=== PATIENT | male | born 1970 | race Hispanic/Latino ===

== ENCOUNTER 2018-08-30 04:18 | Inpatient (IN) | payer SELFPAY ==
[2018-08-30 05:26] LABS: Hemoglobin 9.1 g/dL (14.0-18.0); Mean Corpuscular HGB CONC 29.7 g/dL (32.0-36.0); Mean Corpuscular Hemoglobin 23.1 pg (27.0-31.0); Mean Corpuscular Volume 77.7 fL (78.0-98.0); Mean Platelet Volume 9.7 fL (7.4-10.4); Platelet Count 163 thou/uL (130-400); RBC Distribution Width 21.2 % (11.5-14.5); Red Blood Cell (RBC) Count 3.94 mill/uL (4.70-6.10); White Blood Cell (WBC) Count 11.3 thou/uL (4.8-10.8)
[2018-08-30 05:56] LABS: #Basophils 0.1 thou/uL (0.0-0.2); #Lymphocytes 1.3 thou/uL (1.20-3.40); #Monocytes 0.3 thou/uL (0.11-0.59); #Neutrophils 9.6 thou/uL (1.40-6.50); %Basophils 0.6 % (0.0-1.0); %Eosinophils 0.1 % (0.0-10.0); %Lymphocytes 11.5 % (21.0-51.0); %Neutrophils 84.9 % (42.0-75.0); Anisocytosis MODERATE=16-30 cells (100X) (0-5/hpf); Elliptocytes SLIGHT = 2-5 cells (100X) (0-1/hpf); Hypochromia SLIGHT = 6-15 cells (100X) (0-5/hpf); MDiff Complete? YES; Microcytosis SLIGHT = 6-15 cells (100X) (0-5/hpf); Platelet Morphology Comment Appears Adequate; Poikilocytosis SLIGHT = 6-15 cells (100X) (0-5/hpf)
[2018-08-30 06:53] VITALS: BMI 31.3
[2018-08-30 08:26] LABS: Lactic Acid 2.1 mmol/L (0.5-2.2)
[2018-08-30 08:33] LABS: ALT (SGPT) 15 U/L (8-55); AST (SGOT) 14 U/L (5-34); Albumin 3.1 g/dL (3.5-5.0); Alkaline Phosphatase 55 U/L (40-150); Anion Gap 11 mmol/L (10-20); BUN (Urea Nitrogen) 13 mg/dL (8.9-20.6); Bilirubin, Total 0.3 mg/dL (0.2-1.2); Calc. Creatinine Clearance 140 mL/min (70-130); Carbon Dioxide 20 mmol/L (22-29); Chloride 110 mmol/L (98-107); Estimated GFR-MDRD Greater than 90; Globulin 2.2 g/dL (2.4-3.5); Glucose 95 mg/dL (70-105); Iron 19 ug/dL (65-175); Iron Binding Capacity, Total 260 mcg/dL (261-462); Potassium 4.2 mmol/L (3.5-5.1); Protein, Total 5.3 g/dL (6.0-8.3); Sodium 137 mmol/L (136-145)
[2018-08-30 09:27] LABS: #Basophils 0.1 thou/uL (0.0-0.2); #Eosinphils 0.1 thou/uL (0.0-0.7); #Lymphocytes 1.5 thou/uL (1.20-3.40); #Monocytes 0.6 thou/uL (0.11-0.59); #Neutrophils 7.2 thou/uL (1.40-6.50); %Basophils 0.5 % (0.0-1.0); %Eosinophils 0.5 % (0.0-10.0); %Lymphocytes 15.8 % (21.0-51.0); %Monocytes 5.8 % (0.0-10.0); %Neutrophils 77.3 % (42.0-75.0); Large Platelets SLIGHT; MDiff Complete? YES; Mean Corpuscular HGB CONC 30.4 g/dL (32.0-36.0); Mean Corpuscular Hemoglobin 23.9 pg (27.0-31.0); Mean Corpuscular Volume 78.5 fL (78.0-98.0); Mean Platelet Volume 12.2 fL (7.4-10.4); Ovalocytes SLIGHT = 2-5 cells (100X) (0-1/hpf); Platelet Count 159 thou/uL (130-400); Platelet Morphology Comment Appears Adequate; Poikilocytosis SLIGHT = 6-15 cells (100X) (0-5/hpf); RBC Distribution Width 21.4 % (11.5-14.5); Red Blood Cell (RBC) Count 3.79 mill/uL (4.70-6.10); White Blood Cell (WBC) Count 9.3 thou/uL (4.8-10.8)
[2018-08-30] MEDS: Famotidine/PF 20 mg/2ml Vial SLOW IVP SCH ×2 (09:51→20:52)
[2018-08-30] MEDS: Sodium Chloride 0.9% 1,000 ML IV SCH ×2 (09:51→15:45)
[2018-08-30 18:13] LABS: Hemoglobin 8.2 g/dL (14.0-18.0)
--- NOTE | 2018-08-30 20:29 | HP ---
CHIEF COMPLAINT: Bright blood per rectum. HISTORY OF PRESENT ILLNESS: The patient is a 47-year-old male with history of hypertension and anemia, who presents to the hospital with hematochezia. The patient stated that about 2 weeks ago, he had his banding of his internal hemorrhoid. The patient had this procedure done at [facility]. The patient states that he has had multiple procedures in the past about 3 or 4 in regard to his internal hemorrhoid bleeding. The patient stated that yesterday he was driving back from dialysis when he had to go to the bathroom, so he stopped at the gas station. When he went to the bathroom, the patient had initially a small amount of dark stools. However, after that, started having significant amount of bright blood per rectum. The patient stated that after that he felt very dizzy, did not feel well. The patient stated that he had 2 bouts of bloody stools also in the [place] [facility]. The patient states that normally that he is able to push his hemorrhoid back in, which was also bleeding; however, at this time, he was unable to do so. The patient also states that in the past, his bleeding has not been as severe as it was at this time. The family drove the patient to the [place] ER, where he got 1 unit of PRBC. PAST MEDICAL HISTORY: He has a history of; 1. Hypertension. 2. Kidney stones. 3. Anemia. PAST SURGICAL HISTORY: He has had a cholecystectomy and had about 2 to 3 internal hemorrhoid banding at [facility]. FAMILY HISTORY: No history of heart disease or cancer. SOCIAL HISTORY: Denies any smoking. Occasional alcohol use. No drug use. He is a full code. Lives with the family. REVIEW OF SYSTEMS: All negative except for the ones mentioned above in HPI. MEDICATIONS: He takes lisinopril 20 mg daily and iron injections one every 7 days. PHYSICAL EXAMINATION: VITAL SIGNS: Temperature of 98.2, pulse 71, respirations 20, O2 saturation 97% on room air, blood pressure 119/69. GENERAL: He is awake, alert, and oriented x3. Does not appear in any distress. CV: S1, S2 present. No murmurs, rubs, or gallops. HEENT: Normocephalic, atraumatic. No lymphadenopathy noted. Pupils are equal and reactive to light. ABDOMEN: Soft and nontender. Bowel sounds present x2. LUNGS: Clear to auscultation. No rhonchi or wheezes noted. NEUROVASCULAR: No focal deficits noted. SKIN: No cuts, lesions, or bruises noted. EXTREMITIES: Pedal pulses are present x2. LABORATORY RESULTS: WBCs of 9.3; hemoglobin of 9.0, he was 7.5 in [place], went up to 9.0; his MCV is 78.5; platelets of 159. Chemistry; sodium of 137, potassium of 4.2, BUN of 13, creatinine of 0.78, iron is 19, TIBC is 260, his ferritin is 34. ASSESSMENT AND PLAN: The patient is a very pleasant 47-year-old male, who presents to the hospital after hematochezia. 1. Hematochezia, most likely secondary to his hemorrhoid bleed. The patient yesterday became very symptomatic, which concerned him, so he came in to the ER for further evaluation. Currently, he feels well. His vitals are stable. His H and H are also stable. We will continue to monitor his H and H. GI has been consulted. I did speak with the patient and family, who wanted to follow up at [facility] since all his procedures have been done at [facility]. I also went ahead and kerbsided surgery and made them aware that if the patient starts having bright blood per rectum, may need a surgical intervention; however, at this time, I do not think there is a need for that. The patient also had a CAT scan, CT of abdomen and pelvis with IV contrast only, he did not have oral contrast, which indicated a soft tissue prominence at the distal aspect of the gastric lumen. The patient has at times been complaining of fullness according to the patient's ; however, he has no weight loss. I did recommend the patient to follow up as an outpatient with GI. 2. Hypertension. We will continue to hold his lisinopril. 3. Microcytic anemia. We will give one dose of IV iron. 4. DVT prophylaxis. We will put the patient on some SCDs. Job ID: [id number]
--- NOTE | 2018-08-30 23:49 | CON ---
DATE OF CONSULTATION: 08/30/2018 HISTORY OF PRESENT ILLNESS: Mr. Leal is a 47-year-old gentleman who was admitted last night for history of bleeding. He presented to the emergency room for this. He reports his history comes from his significant other who is in the room with him. Apparently he lives in [place], he was returning from the [place] area when he had rectal bleeding and stopped to come to the emergency room. He had hemorrhoidal banding via colonoscopy back on the of last month in [place] either [facility] or in the [facility] system. Apparently, he has had this once before a couple of years ago. She reports he has had history of chronic iron deficiency anemia attributed to hemorrhoidal bleeding and he has had evaluation in that system before. Apparently, he had upper endoscopy few years ago that they report was normal. He does intermittently have reflux and indigestion. He denies any rectal pain now. He had a small bowel movement this morning with a scant amount of blood. Last night when he presented apparently, he felt very weak and little bit diaphoretic. PAST MEDICAL HISTORY: Includes history of chronic iron deficiency anemia, internal hemorrhoids have been banded twice. He has had some issues with blood pressure in the past and kidney stones and renal cyst. PAST SURGICAL HISTORY: Hemorrhoidal banding, either appendectomy or cholecystectomy they are not sure which. ALLERGIES: SULFA. MEDICATIONS AT HOME: Lisinopril. REVIEW OF SYSTEMS: Negative for dysphagia, odynophagia, weight loss, melena, nausea, vomiting, chest pain, shortness of breath, dyspnea on exertion, anorectal pain, abdominal pain. FAMILY HISTORY: Negative for gastric cancer or colonic malignancy. SOCIAL HISTORY: Negative for alcohol, drugs, or tobacco. He is here with his . They live in [place]. MEDICATIONS HERE: Pepcid. PHYSICAL EXAMINATION: VITAL SIGNS: Temperature is 99.1 and 98.2, pulse 72, blood pressure 116/58. GENERAL: He is resting comfortably in bed. He is in no distress. HEENT: Oral and membranes are pink and moist. NECK: Supple without adenopathy. LUNGS: Clear. HEART: Regular rate and rhythm. ABDOMEN: Soft and nontender. There is no rebound. There is no guarding. RECTAL: Reveals internal hemorrhoids with no bleeding. LABORATORY DATA: The patient's hemoglobin was 9.5 on admission at 2200 yesterday and is 9.0 at 7 this morning. His white count was 17,000, then it is 9 today, platelet count 159. INR 1. Comprehensive metabolic profile normal with iron of 19, TIBC of 260, and saturation 7%, and ferritin 34. Liver function tests normal. Basic metabolic profile normal. A CAT scan of the abdomen and pelvis was done at 2300 last night for hematochezia. This is a limited evaluation as there is no oral contrast, only IV contrast that the radiologist felt there was possibly some soft tissue problems in distal antrum for which underlying mass was a diagnosis of exclusion. There was diverticulosis noted as well. ASSESSMENT: 1. Rectal bleeding, likely related to recent hemorrhoidal banding in [place]. There is no bleeding now. I suspect the bands probably fell off with a necrotic hemorrhoid. He has large internal hemorrhoids. However, I suspect that he will in the machine long goods helper probably need a formal hemorrhoidectomy. His has already made an appointment back at the clinic. They go to in [place] to get that taken care of. There is no active hemorrhage now, and I agree that if he has any further bleeding or hemorrhage overnight, he can go home and follow up with his doctors in [place]. 2. The radiologist states there may or may not be a filling defect in the stomach. The CAT scan is very limited and that there was no oral contrast for the stomach. The patient has some vague chronic upper GI symptoms. His notes that he has had upper endoscopies in the past 2 years in relation to evaluation for chronic anemia. If there is a desire to work this up further here, an upper GI with air-contrast upper GI would be the first step as this CT was very equivocal in it's read and it was not a CAT scan designed to evaluate the stomach at all as there was no oral contrast given. RECOMMENDATIONS: 1. Stool softeners with Colace and fiber daily. 2. Anusol suppositories. 3. If no further bleeding, the patient can follow up with his surgeon and gastrologist in [place]. 4. We will continue with H2 jamal and PPI for vague upper GI symptoms. 5. With regard to the abnormality seen on the CAT scan in the stomach, this was a rule out call. I have reviewed the films. There is no oral contrast given to really evaluate the stomach lining. I think if further evaluation is going to occur here, that could probably be done in the outpatient setting, but he is not going to stay here. He is going to go back to [place] and they can evaluate it there. I would give him a copy of his CAT scan to bring back to his doctors there. It seems that he has had recent endoscopy there and he probably does not need an another one. If for some reason he is going to stay here, I would recommend an upper GI air contrast that would be a more appropriate evaluation of the gastric mucosa from a radiologic standpoint. Job ID: [id number]
[2018-08-31] MEDS: Sodium Chloride 0.9% 1,000 ML IV SCH (04:02)
[2018-08-31 06:21] LABS: Anion Gap 11 mmol/L (10-20); BUN (Urea Nitrogen) 12 mg/dL (8.9-20.6); Calc. Creatinine Clearance 132 mL/min (70-130); Calcium 8.3 mg/dL (7.8-10.44); Carbon Dioxide 22 mmol/L (22-29); Chloride 111 mmol/L (98-107); Estimated GFR-MDRD Greater than 90; Glucose 81 mg/dL (70-105); Potassium 4.1 mmol/L (3.5-5.1); Sodium 140 mmol/L (136-145)
[2018-08-31 07:41] LABS: #Basophils 0.1 thou/uL (0.0-0.2); #Eosinphils 0.1 thou/uL (0.0-0.7); #Lymphocytes 1.7 thou/uL (1.20-3.40); #Monocytes 0.4 thou/uL (0.11-0.59); %Basophils 1.1 % (0.0-1.0); %Lymphocytes 32.3 % (21.0-51.0); %Monocytes 7.8 % (0.0-10.0); %Neutrophils 56.8 % (42.0-75.0); Hemoglobin 8.2 g/dL (14.0-18.0); MDiff Complete? YES; Mean Corpuscular HGB CONC 30.6 g/dL (32.0-36.0); Mean Corpuscular Hemoglobin 23.9 pg (27.0-31.0); Mean Corpuscular Volume 78.1 fL (78.0-98.0); Mean Platelet Volume 10.5 fL (7.4-10.4); Ovalocytes SLIGHT = 2-5 cells (100X) (0-1/hpf); Platelet Count 142 thou/uL (130-400); Platelet Morphology Comment Appears Decreased; Poikilocytosis SLIGHT = 6-15 cells (100X) (0-5/hpf); RBC Distribution Width 20.9 % (11.5-14.5); Red Blood Cell (RBC) Count 3.42 mill/uL (4.70-6.10); White Blood Cell (WBC) Count 5.3 thou/uL (4.8-10.8)
[2018-08-31] MEDS ORDERED: Iron Sucrose Complex 100 MG in Sodium Chloride 0.9% 100 ML IVPB SCH (07:45)
[2018-08-31] MEDS ORDERED: Iron, Sodium Ferric Gluconate 125 MG in Sodium Chloride 0.9% 100 ML IVPB SCH (08:45)
[2018-08-31] MEDS ORDERED: Docusate 100 MG CAP PO SCH (09:00)
[2018-08-31] MEDS: Famotidine/PF 20 mg/2ml Vial SLOW IVP SCH (10:17)
[2018-08-31 12:34] VITALS: BP 129/79; TEMP 98.4
--- NOTE | 2018-09-01 14:42 | DIS ---
DATE OF ADMISSION: 08/30/2018 DATE OF DISCHARGE: 08/31/2018 DISCHARGE DIAGNOSES: As of the following, 1. Hematochezia. 2. Hypertension. 3. Macrocytic anemia. 4. History of hemorrhoids, multiple hemorrhoid surgeries. HOSPITAL COURSE: The patient is a 47-year-old male who presented to the hospital initially with hematochezia and became very symptomatic with it. He was found to have an H and H of 7.5 I believe at the outside ER. He receives 1 unit of blood. His H and H came up to I believe it was 9. The patient continued to maintain his H and H at 8.2 consecutively x2 and he was discharged home. The patient while in the hospital was seen by GI, recommended to follow up as an outpatient given his some abnormal disease in his CT scan. The patient's stated that they are from [place], they have all their health care with [facility] and they will follow up with his needle grader at [facility]. The patient's also made an appointment with the surgeon since he has had multiple hemorrhoid surgeries most likely he had bright blood per rectum from his hemorrhoids. The patient did have a CT which indicated limited evaluation of the bowel without enteric contrast. There is soft tissue prominence of the distal aspect of the gastric lumen for which underlying mass is the diagnosis of exclusion. Recommended GI consultation and endoscopy. At this time, the patient and the family was made well aware about these findings and asked them to follow up with the GI doctor. HOME MEDICATIONS: 1. Iron one bag every 7 days of what he takes at home. 2. Colace 100 mg b.i.d. PHYSICAL EXAMINATION: VITAL SIGNS: Temperature 98.4, heart rate 78, respirations 16, oxygen saturation 98% on room air, blood pressure 129/79. GENERAL: He is awake, alert, and oriented x3. Does not appear in distress. CV: S1 and S2 present. No murmurs, rubs, or gallops. ABDOMEN: Soft and nontender. Bowel sounds are present x2. EXTREMITIES: No edema. Pedal pulses are present x2. Again, he will be discharged home. He will follow up with his surgeon and his needle grader as outpatient. Job ID: [id number]
== END 2018-08-31 13:35 | disposition home or self-care (01) | DRG 395 ==
LOC: ERS 04:18 → OBSVTOIN 05:59 → 2SW 05:59 → T4-B 08-31 09:29
PROVIDERS: ADMIT Internal Medicine; ATTEND Internal Medicine
DX: K64.8 Other hemorrhoids (principal); I10 Essential (primary) hypertension; D50.0 Iron deficiency anemia secondary to blood loss (chronic); Z90.49 Acquired absence of other specified parts of digestive tract; Z88.2 Allergy status to sulfonamides
CPT/HCPCS: 36415; 80048; 80053; 82728; 83540; 83550; 83605; 85025; 86850; 86900; 86901; 99285; J2916; J3490; S0028